=== PATIENT | male | born 1945 | race Caucasian/White ===

== ENCOUNTER 2024-05-10 12:58 | Emergency (ER) | payer OTHER ==
[2024-05-10 14:12] LABS: Absolute Lymphocytes (CBC) 0.2 K/uL (0.7-4.9); Absolute Neutrophil 3.6 K/uL (1.8-8.0); Basophils % 0.6 % (0-1.3); Eosinophils % 0.9 % (0-4.4); Hematocrit 37.2 % (39.6-49.0); Hemoglobin 12.6 g/dL (13.6-17.9); Lymphocytes % 4.1 % (15.3-44.8); MCH 30.9 pg (27.0-35.0); MCHC 33.9 g/dL (32.0-36.0); MCV 91.2 fL (80-100); MPV 7.9 fL (7.6-11.3); Monocytes % 20.4 % (3.3-12.3); Platelets 243 thou/uL (152-406); RBC Red Blood Cell Count 4.08 M/uL (4.33-5.43); Red Cell Distribution Width 12.8 % (12.1-15.2)
[2024-05-10 14:32] LABS: Albumin 3.5 g/dL (3.4-5.0); Albumin/Globulin Ratio 1.2 (1.1-1.8); Anion Gap 11.7 mEq/L (5.0-15.0); Bilirubin Direct 0.2 mg/dL (0-0.2); Bilirubin Indirect, Calculated 0.3 mg/dL (0.2-0.8); Bilirubin Total 0.5 mg/dL (0.2-1.0); Globulin 2.9 g/dL (2.3-3.5); Magnesium 1.5 mg/dL (1.6-2.4); Potassium 3.7 mEq/L (3.5-5.1); Protein, Total 6.4 g/dL (6.4-8.2); Troponin High Sensitivity 9.3 pg/mL (<58.9)
--- NOTE | 2024-05-10 14:55 | RAD REPORT ---
Procedure: Chest Single View HISTORY: Cough COMPARISON: none FINDINGS: The lungs appear clear of acute infiltrate. No significant pleural effusion noted. The heart is normal size. IMPRESSION: No acute abnormality is displayed.
[2024-05-10 14:56] LABS: Influenza A Ag Positive; Influenza B Ag Negative; SARS-CoV-2 Antigen Rapid Res Negative (Negative)
[2024-05-10 15:18] LABS: Blood Morphology Comment NOT SEEN (NOT SEEN); Differential Total Cells Count 100; Lymphocytes 3 % (15-42); Monocytes 9 % (0-10); Platelet Estimate ADEQ; Segmented Neutrophils 88 % (40-80)
[2024-05-10] MEDS ORDERED: MAGNESIUM SULFATE 1 gm IVPB 1 GM/100 ML BAG IV ONE (15:32)
[2024-05-10] MEDS ORDERED: HYDROCODONE/CHLORPHEN 5 ML/OSYR ONE (15:32)
--- NOTE | 2024-05-10 15:56 | RAD REPORT ---
EXAMINATION: US bilateral LOWER EXTREMITY VENOUS DOPPLER CLINICAL INDICATION: Leg swelling TECHNIQUE: Sonographic evaluation of the veins of the lower extremity bilaterally formed.Grayscale, c olor and spectral analysis performed on all vessels COMPARISON: No prior exam. FINDINGS: The common femoral, superficial femoral, greater saphenous, popliteal and posterior tibial veins bila terally are compressible and demonstrate augmentation. Doppler demonstrates good flow. IMPRESSION: No evidence of deep venous thrombosis involving either lower extremity
--- NOTE | 2024-05-10 16:00 | ER ---
Nurse's Notes [facility] Name: Jordi Horowitz Age: 78 yrs Sex: Male : 1945 Arrival Date: 05/10/2024 Time: 12:58 Bed 16 Private MD: Diagnosis: Influenza due to identified novel influenza A virus;Hypomagnesemia;Edema, unspecified Presentation: 05/10 13:07 Chief complaint: Patient states: cough for past couple days , feet are swollen , feels iw SOB, no chest pain, mid back pain, no fever. Coronavirus screen: Client presents with at least one sign or symptom that may indicate coronavirus-19. Ebola Screen: No symptoms or risks identified at this time. Initial Sepsis Screen: Does the patient meet any 2 criteria? HR > 90 bpm. Does the patient have a suspected source of infection? No. Patient's initial sepsis screen is negative. Risk Assessment: Do you want to hurt yourself or someone else? Patient reports no desire to harm self or others. Onset of symptoms was May 07, 2024. 13:07 Method Of Arrival: Ambulatory iw 13:07 Acuity: SARA 3 iw Triage Assessment: 13:05 General: Appears in no apparent distress. Behavior is calm, cooperative. Pain: Denies kj2 pain. Neuro: Level of Consciousness is awake, alert, obeys commands, Oriented to person, place, time, situation. Cardiovascular: Patient's skin is warm and dry. Respiratory: Airway is patent Respiratory effort is even, unlabored, Parent/caregiver reports the patient having cough that is non-productive, persistent. GI: No signs and/or symptoms were reported involving the gastrointestinal system. : No signs and/or symptoms were reported regarding the genitourinary system. Historical: - Allergies: 13:09 No Known Allergies; iw - Home Meds: 13:09 Spiriva with HandiHaler 18 mcg inhalation Capsule, With Inhalation Device daily iw [Active]; folic acid 800 mcg Oral tablet daily [Active]; melatonin 5 mg Oral capsule nightly [Active]; tamsulosin 0.4 mg oral capsule daily [Active]; pantoprazole 40 mg oral tablet, delayed release (enteric coated) daily [Active]; donepezil 10 mg oral tablet 0.5 tab every day at bedtime [Active]; atorvastatin 20 mg oral tablet daily [Active]; budesonide-formoterol 160-4.5 mcg/actuation inhalation HFA Aerosol Inhaler [Active]; - PMHx: 13:09 Hypercholesterolemia; copd; iw - PSHx: 13:09 None; iw - Immunization history:: Adult Immunizations not up to date. - Infectious Disease History:: Denies. - Social history:: Smoking status: Patient reports the use of cigarette tobacco products, Patient/guardian denies using tobacco, the patient reports quitting approximately 30 years ago. Screenin:25 [facility] ED Fall Risk Assessment (Adult) History of falling in the last 3 months, kj2 including since admission No falls in past 3 months (0 pts) Confusion or Disorientation No (0 pts) Intoxicated or Sedated No (0 pts) Impaired Gait No (0 pts) Mobility Assist Device Used No (0 pt) Altered Elimination No (0 pt) Score/Fall Risk Level 0 - 2 = Low Risk Maintained a safe environment, Hourly rounding (assess needs \T\ fall precautionary measures) done. Abuse screen: Denies threats or abuse. Denies injuries from another. Nutritional screening: No deficits noted. Tuberculosis screening: No symptoms or risk factors identified. Assessment: 13:24 General: Appears in no apparent distress. Behavior is calm, cooperative. Pain:. Neuro: kj2 Level of Consciousness is awake, alert, obeys commands, Oriented to person, place, time, situation. Cardiovascular: Patient's skin is warm and dry. Respiratory: Airway is patent Respiratory effort is even, unlabored. GI: No signs and/or symptoms were reported involving the gastrointestinal system. : No signs and/or symptoms were reported regarding the genitourinary system. 14:30 Reassessment: Patient appears in no apparent distress at this time. Patient and/or kj2 family updated on plan of care and expected duration. Pain level reassessed. Patient is alert, oriented x 3, equal unlabored respirations, skin warm/dry/pink. 15:30 Reassessment: Patient appears in no apparent distress at this time. Patient and/or kj2 family updated on plan of care and expected duration. Pain level reassessed. Patient is alert, oriented x 3, equal unlabored respirations, skin warm/dry/pink. 16:20 Reassessment: Patient appears in no apparent distress at this time. Patient and/or kj2 family updated on plan of care and expected duration. Pain level reassessed. Patient is alert, oriented x 3, equal unlabored respirations, skin warm/dry/pink. Vital Signs: 13:07 BP 138 / 64; Pulse 94; Resp 20; Temp 97.7(TE); Pulse Ox 96% on R/A; Weight 89.81 kg; iw Height 5 ft. 10 in. ; Pain 7/10; 14:30 BP 132 / 70; Pulse 88; Resp 20; Temp 98; Pulse Ox 100% ; kj2 15:30 BP 134 / 72; Pulse 84; Resp 18; Pulse Ox 98% on R/A; kj2 13:07 Body Mass Index 28.41 (89.81 kg, 177.8 cm) iw 13:07 Pain Scale: Adult iw ED Course: 13:02 Patient arrived in ED. im 13:09 Triage completed. iw 13:12 Arm band placed on Patient placed. iw 13:15 Missed attempt(s): 20 gauge in right antecubital area. kj2 13:17 Lauryn Clarke FNP-C is PHCP. kb 13:17 Jacob Joiner MD is Attending Physician. kb 13:23 Isabel Lees RN is Primary Nurse. kj2 13:27 Patient has correct armband on for positive identification. Bed in low position. Call kj2 light in reach. Adult w/ patient. Provided Education on: call light. 13:49 Initial lab(s) drawn, by me, sent to lab. Inserted saline lock: 20 gauge in right bp forearm, using aseptic technique. Blood collected. Flushed with 10 mL NS. 14:29 Flu Sent. kj2 14:29 SARS-COV-2 Antigen Rapid Sent. kj2 14:50 XRAY Chest (1 view) In Process Unspecified. EDMS 15:53 US Extremity Venous W Compression Jones In Process Unspecified. EDMS 16:22 No provider procedures requiring assistance completed. IV discontinued, intact, kj2 bleeding controlled, No redness/swelling at site. Pressure dressing applied. Administered Medications: 15:36 Drug: Magnesium Sulfate IVPB 1 grams IVPB once over 1 hrs Route: IVPB; Infused Over: 1 kj2 hrs; Site: right forearm; 16:37 Follow up: Response: No adverse reaction; IV Status: Completed infusion; IV Intake: kj2 100ml 15:36 Drug: Tussionex Pennkinetic ER PO Suspension 5 ml PO once Route: PO; kj2 16:18 Follow up: Response: No adverse reaction kj2 16:36 Drug: predniSONE PO 40 mg PO once Route: PO; kj2 16:36 Follow up: Response: No adverse reaction kj2 16:37 Follow up: Response: Medication administered at discharge. kj2 Medication: 13:27 VIS not applicable for this client. kj2 Intake: 16:37 IV: 100ml; Total: 100ml. kj2 Outcome: 16:00 Discharge ordered by MD. infante 16:23 Discharged to home kj2 16:23 Condition: stable 16:23 Discharge instructions given to patient, family, Instructed on discharge instructions, follow up and referral plans. Demonstrated understanding of instructions, follow-up care, 16:44 Patient left the ED. iw Signatures: Dispatcher [employer] EDMS Lauryn Clarke, KARENC LOPEZ-Clara Sen RN RN Jose Junior RN PATRICK Jordana Zelaya Krystal, PATRICK RN kj2 Corrections: (The following items were deleted from the chart) 13:12 13:09 PMHx: Asthma; iw iw
--- NOTE | 2024-05-10 16:00 | EDPHYS ---
Physician Documentation [facility] Name: Jordi Horowitz Age: 78 yrs Sex: Male : 1945 Arrival Date: 05/10/2024 Time: 12:58 Bed 16 Private MD: ED Physician Jacob Joiner HPI: 05/10 13:37 This 78 yrs old Male presents to ER via Ambulatory with complaints of Flu Symptoms, kb Cough. 13:37 Pt is a 78 year old male who presents for cough, shortness of breath and bilateral kb lower extremity edema that started 2 days ago. Denies fever, chills, congestion. . Historical: - Allergies: 13:09 No Known Allergies; iw - Home Meds: 13:09 Spiriva with HandiHaler 18 mcg inhalation Capsule, With Inhalation Device daily iw [Active]; folic acid 800 mcg Oral tablet daily [Active]; melatonin 5 mg Oral capsule nightly [Active]; tamsulosin 0.4 mg oral capsule daily [Active]; pantoprazole 40 mg oral tablet, delayed release (enteric coated) daily [Active]; donepezil 10 mg oral tablet 0.5 tab every day at bedtime [Active]; atorvastatin 20 mg oral tablet daily [Active]; budesonide-formoterol 160-4.5 mcg/actuation inhalation HFA Aerosol Inhaler [Active]; - PMHx: 13:09 Hypercholesterolemia; copd; iw - PSHx: 13:09 None; iw - Immunization history:: Adult Immunizations not up to date. - Infectious Disease History:: Denies. - Social history:: Smoking status: Patient reports the use of cigarette tobacco products, Patient/guardian denies using tobacco, the patient reports quitting approximately 30 years ago. ROS: 13:36 Constitutional: As per HPI kb Exam: 13:36 Constitutional: This is a well developed, well nourished patient who is awake, alert, kb and in no acute distress. Head/Face: Normocephalic, atraumatic. ENT: Moist Mucous membranes Cardiovascular: Regular rate Respiratory: Respirations even and unlabored. No increased work of breathing. Talking in full sentences Abdomen/GI: Soft, non-tender. No distention Skin: Warm, dry with normal turgor. Normal color. MS/ Extremity: Pulses equal, no cyanosis. Neurovascular intact. Full, normal range of motion. Neuro: Awake and alert, GCS 15, oriented to person, place, time, and situation. 13:36 Cardiovascular: Edema: 2+ edema to lower extremities, 13:56 ECG was reviewed by the Attending Physician. kb Vital Signs: 13:07 BP 138 / 64; Pulse 94; Resp 20; Temp 97.7(TE); Pulse Ox 96% on R/A; Weight 89.81 kg; iw Height 5 ft. 10 in. ; Pain 7/10; 14:30 BP 132 / 70; Pulse 88; Resp 20; Temp 98; Pulse Ox 100% ; kj2 15:30 BP 134 / 72; Pulse 84; Resp 18; Pulse Ox 98% on R/A; kj2 13:07 Body Mass Index 28.41 (89.81 kg, 177.8 cm) iw 13:07 Pain Scale: Adult iw MDM: 13:17 Medical Screening Exam initiated kb 15:59 Differential diagnosis: flu, covid, pneumonia, dvt, chf. Data reviewed: vital signs, kb nurses notes. Historians other than the Patient: Spouse/Significant Other: . Counseling: I had a detailed discussion with the patient and/or guardian regarding the historical points, exam findings, and any diagnostic results supporting the discharge/admit diagnosis, lab results, radiology results, the need for outpatient follow up, a family practitioner, to return to the emergency department if symptoms worsen or persist or if there are any questions or concerns that arise at home. 05/10 13:25 Order name: Basic Metabolic Panel; Complete Time: 14:33 kb 05/10 13:25 Order name: CBC with Diff; Complete Time: 15:22 kb 05/10 13:25 Order name: LFT's; Complete Time: 14:33 kb 05/10 13:25 Order name: Magnesium; Complete Time: 14:33 kb 05/10 13:25 Order name: NT PRO-BNP; Complete Time: 14:33 kb 05/10 13:25 Order name: Troponin HS; Complete Time: 14:33 kb 05/10 13:25 Order name: SARS-COV-2 Antigen Rapid kb 05/10 13:25 Order name: Flu kb 05/10 14:18 Order name: Manual Differential; Complete Time: 15:22 EDMS 05/10 14:37 Order name: COVID-19 Ag + Flu A+B Ag; Complete Time: 14:57 EDMS 05/10 13:25 Order name: XRAY Chest (1 view); Complete Time: 14:56 kb 05/10 15:00 Order name: US Extremity Venous W Compression Jones; Complete Time: 15:59 kb 05/10 13:25 Order name: EKG; Complete Time: 13:25 kb 05/10 13:25 Order name: Cardiac monitoring; Complete Time: 13:53 kb 05/10 13:25 Order name: EKG - Nurse/Tech; Complete Time: 13:53 kb 05/10 13:25 Order name: IV Saline Lock; Complete Time: 13:52 kb 05/10 13:25 Order name: Labs collected and sent; Complete Time: 13:52 kb 05/10 13:25 Order name: O2 Per Protocol; Complete Time: 13:52 kb 05/10 13:25 Order name: O2 Sat Monitoring; Complete Time: 13:52 kb EC:56 Rate is 77 beats/min. Rhythm is regular. QRS [place] is Normal. MD interval is normal at kb 184 msec. QRS interval is normal at 98 msec. QT interval is normal at 443 msec. Administered Medications: 15:36 Drug: Magnesium Sulfate IVPB 1 grams IVPB once over 1 hrs Route: IVPB; Infused Over: 1 kj2 hrs; Site: right forearm; 16:37 Follow up: Response: No adverse reaction; IV Status: Completed infusion; IV Intake: kj2 100ml 15:36 Drug: Tussionex Pennkinetic ER PO Suspension 5 ml PO once Route: PO; kj2 16:18 Follow up: Response: No adverse reaction kj2 16:36 Drug: predniSONE PO 40 mg PO once Route: PO; kj2 16:36 Follow up: Response: No adverse reaction kj2 16:37 Follow up: Response: Medication administered at discharge. kj2 Disposition: 05/11 12:39 Co-signature as Attending Physician, Jacob Joiner MD I agree with the assessment and woodrow plan of care. Disposition Summary: 05/10/24 16:00 Discharge Ordered Notes: Location: Home kb Condition: Stable kb Diagnosis - Influenza due to identified novel influenza A virus kb - Hypomagnesemia kb - Edema, unspecified kb Followup: kb - With: Emergency Department - When: As needed - Reason: Worsening of condition Followup: kb - With: Private Physician - When: 2 - 3 days - Reason: Recheck today's complaints, Continuance of care, Re-evaluation by your physician Discharge Instructions: - Discharge Summary Sheet kb - Hypomagnesemia kb - Influenza, Adult, [id number] kb - Peripheral Edema kb Forms: - Medication Reconciliation Form kb - Antibiotic Education kb - Prescription Opioid Use kb - Patient Portal Instructions kb - Leadership Thank You Letter kb Prescriptions: - Prednisone 20 mg Oral Tablet - take 1 tablet ORAL route once daily for 5 days; 5 tablet; Refills: 0, Product kb Selection Permitted - Tessalon Perles 100 mg Oral Capsule - take 1 capsule ORAL route every 8 hours As needed; 15 capsule; Refills: 0, kb Product Selection Permitted Signatures: Dispatcher [employer] EDLauryn Rice, LOPEZ-Sonia MARROQUIN-Jacob Cardenas MD MD cha Williams, Irene, RN RN iw Isabel Lees RN RN kj2 Corrections: (The following items were deleted from the chart) 05/10 13:12 13:09 PMHx: Asthma; [facility] 14:37 14:35 Influenza Screen (A ordered. EDMS EDMS
[2024-05-10] MEDS ORDERED: predniSONE 20 MG TAB ONE (16:33)
[2024-05-10 17:00] VITALS: TEMP 97.7
[2024-05-10 17:02] VITALS: BP 134/72; O2SAT 98
--- NOTE | 2024-05-11 11:58 | EKG ---
Test Date: 2024-05-10 Test Time: 13:52:30 Park Maintenance Technician: ADENIKE MEASUREMENT RESULTS: Intervals: Rate: 77 MT: 184 QRSD: 98 QT: 392 QTc: 443 [place]: P: 61 MT: 184 QRS: 38 T: 45 INTERPRETIVE STATEMENTS: Normal sinus rhythm Normal ECG No previous ECG available for comparison Electronically Signed On 05-11-24 11:57:45 SERVICE PLANNER by Naren Tyler
== END 2024-05-10 16:44 | disposition home or self-care (01) ==
LOC: ER 12:58
DX: J10.1 Influenza due to other identified influenza virus with other respiratory manifestations (principal); E83.42 Hypomagnesemia; R60.9 Edema, unspecified; J44.9 Chronic obstructive pulmonary disease, unspecified; Z11.52 Encounter for screening for COVID-19
CPT/HCPCS: 96365; 93005; 85025; 80048; 36415; 83735; 80076; 84484; 83880; 71045; 93970; 99284; 87428; J7512; J3475